=== PATIENT | female | born 1990 | race American Indian/Alaskan Native ===

== ENCOUNTER 2017-11-14 02:10 | Emergency (ER) | payer SELFPAY ==
[2017-11-14 02:45] LABS: Basophils % (Auto) 0.6 % (0.0-1.8); Eosinophils # (Auto) 0.1 K/mm3 (0.0-0.4); Eosinophils % (Auto) 1.2 % (0.0-4.3); Hematocrit 38.2 % (30.3-42.9); Hemoglobin 12.7 gm/dl (10.1-14.3); Lymphocytes # (Auto) 1.9 K/mm3 (1.2-5.4); Lymphocytes % (Auto) 30.2 % (13.4-35.0); Mean Corpuscular HGB Conc 33 % (30-34); Mean Corpuscular Hemoglobin 32 pg (28-32); Mean Corpuscular Volume 95 fl (79-97); Monocytes # (Auto) 0.6 K/mm3 (0.0-0.8); Monocytes % (Auto) 9.9 % (0.0-7.3); Platelet Count 239 K/mm3 (140-440); Red Blood Count 4.05 M/mm3 (3.65-5.03)
[2017-11-14 03:22] LABS: Bilirubin,Urine NEG (Negative); Blood,Urine NEG (Negative); Color,Urine Yellow (Yellow); Mucus,Urine FEW /HPF; Protein,Urine <15 mg/dL mg/dL (Negative); Urobilinogen,Urine < 2.0 mg/dL (<2.0); WBC,Urine < 1.0 /HPF (0.0-6.0)
--- NOTE | 2017-11-14 07:42 | Emergency Department Report ---
ED General Adult HPI - General Chief complaint: Back Pain/Injury Stated complaint: POSS HIGH BP NUMBNESS NAUSEA SINUS CONGESTION Time Seen by Provider: 11/14/17 07:21 Source: patient, family Mode of arrival: Ambulatory Limitations: No Limitations - History of Present Illness Initial comments: This is 27-year-old female who is here report that she is having numbness to her left arm and lip 2 years which is worse. She does not have any numbness at this time but reports that she has a history of high blood pressure and she was taking a water pill and it always better potassium low that she is worried about that. She is also complaining of possible high blood pressure and nausea from sinus drainage. She did report that she was having back pain at 10 out of 10 that was on and off to lower back on both sides that in the injury. Pain is achy but none now. Denies any urinary, burning and frequency urgency. Denies any fever or chills. Denies any abdominal pain. Denies any cough, shortness of breath or chest pain. Denies any headache, dizziness or blurred vision. No alleviating or exacerbating factors. No medication taken prior to coming to the emergency room. Onset/Timin -: year(s) Location: back Radiation: non-radiation Severity scale (0 -10): 10 Quality: aching Consistency: intermittent Worsens with: none Associated Symptoms: nausea/vomiting (nausea from postnasal drip), other ( numbness to left arm and lip. Nasal congestion and runny nose from sinus problems). denies: confusion, chest pain, cough, diaphoresis, fever/chills, headaches, loss of appetite, malaise, rash, seizure, shortness of breath, syncope, weakness Treatments Prior to Arrival: none - Related Data Previous Rx's Medication Instructions Recorded Last Taken Type Amoxicillin 500 mg PO Q8H 10 Days #30 capsule 11/14/17 Unknown Rx Cetirizine HCl [ZyrTEC] 10 mg PO QDAY 21 Days #21 11/14/17 Unknown Rx tab.rapdis Fluticasone [Flonase] 1 spray NS QDAY 14 Days #1 bottle 11/14/17 Unknown Rx Promethazine [Phenergan TAB] 25 mg PO Q6HR PRN #16 tab 11/14/17 Unknown Rx Allergies Allergy/AdvReac Type Severity Reaction Status Date / Time ondansetron Allergy Anaphylaxis Verified 11/14/17 02:23 [From Zofran (as hydrochloride)] ED Review of Systems ROS: Stated complaint: POSS HIGH BP NUMBNESS NAUSEA SINUS CONGESTION Other details as noted in HPI Constitutional: denies: chills, fever Eyes: denies: eye pain, eye discharge, vision change ENT: congestion. denies: ear pain, throat pain, dental pain Respiratory: denies: cough, shortness of breath, SOB with exertion, SOB at rest , stridor, wheezing Cardiovascular: denies: chest pain, palpitations, edema, syncope, paroxysmal nocturnal dyspnea Endocrine: no symptoms reported Gastrointestinal: nausea. denies: abdominal pain, vomiting, diarrhea, constipation, hematemesis, hematochezia Genitourinary: denies: urgency, dysuria, discharge Musculoskeletal: denies: back pain, joint swelling, arthralgia, myalgia Skin: denies: rash, lesions Neurological: numbness (left arm and lip that has resolved. This is been going on for 2 years and it comes and goes.). denies: headache, weakness, paresthesias, abnormal gait, vertigo Psychiatric: denies: anxiety, depression ED Past Medical Hx - Past Medical History Previous Medical History?: Yes Hx Hypertension: Yes - Surgical History Past Surgical History?: Yes - Family History Family history: hypertension - Social History Smoking Status: Current Every Day Smoker Substance Use Type: None - Medications Home Medications: Home Medications Medication Instructions Recorded Confirmed Last Taken Type Amoxicillin 500 mg PO Q8H 10 Days #30 capsule 11/14/17 Unknown Rx Cetirizine HCl [ZyrTEC] 10 mg PO QDAY 21 Days #21 11/14/17 Unknown Rx tab.rapdis Fluticasone [Flonase] 1 spray NS QDAY 14 Days #1 bottle 11/14/17 Unknown Rx Promethazine [Phenergan TAB] 25 mg PO Q6HR PRN #16 tab 11/14/17 Unknown Rx ED Physical Exam - General Limitations: No Limitations General appearance: alert, in no apparent distress - Head Head exam: Present: atraumatic, normocephalic, normal inspection - Eye Eye exam: Present: normal appearance, PERRL, EOMI. Absent: nystagmus Pupils: Present: normal accommodation - ENT ENT exam: Present: normal exam, normal orophraynx, mucous membranes moist, normal external ear exam, other (bilateral nasal mucosa erythema, congested with clear drainage. Bilateral maxillary sinus tenderness to palpate). Absent : TM's normal bilaterally (bilateral TM congested without erythema) - Neck Neck exam: Present: normal inspection, tenderness, full ROM. Absent: meningismus, lymphadenopathy, thyromegaly - Respiratory Respiratory exam: Present: normal lung sounds bilaterally. Absent: respiratory distress, chest wall tenderness - Cardiovascular Cardiovascular Exam: Present: normal rhythm, normal heart sounds. Absent: bradycardia, systolic murmur, diastolic murmur - GI/Abdominal GI/Abdominal exam: Present: soft, normal bowel sounds. Absent: distended, tenderness, guarding, rebound, rigid, organomegaly, mass, bruit, pulsatile mass , hernia - Extremities Exam Extremities exam: Present: normal inspection, full ROM, normal capillary refill. Absent: tenderness, pedal edema - Back Exam Back exam: Present: normal inspection, full ROM, other (ambulates without any difficulties). Absent: tenderness, CVA tenderness (R), CVA tenderness (L), muscle spasm, paraspinal tenderness, vertebral tenderness, rash noted - Neurological Exam Neurological exam: Present: alert, oriented X3, normal gait, reflexes normal. Absent: motor sensory deficit - Psychiatric Psychiatric exam: Present: normal affect, normal mood - Skin Skin exam: Present: warm, dry, intact, normal color. Absent: rash ED Course Vital Signs 11/14/17 11/14/17 02:12 04:11 Temperature 98.0 F Pulse Rate 54 L 63 Respiratory 18 18 Rate Blood Pressure 144/93 Blood Pressure 138/86 [Right] O2 Sat by Pulse 99 99 Oximetry - Reevaluation(s) Reevaluation #1: 11/14/17 08:40 She received potassium 40 mEq by mouth 1 dose in the emergency room. Potassium is 3.5. She is able to tolerate oral liquids. She did have any numbness or tingling or back pain at present. Patient says she feels better. Her vital signs remained stable throughout ED course. ED Medical Decision Making - Lab Data Result diagrams: 11/14/17 02:35 Lab Results 11/14/17 11/14/17 11/14/17 Range/Units 02:35 02:35 03:06 WBC 6.4 (4.5-11.0) K/mm3 RBC 4.05 (3.65-5.03) M/mm3 Hgb 12.7 (10.1-14.3) gm/dl Hct 38.2 (30.3-42.9) % MCV 95 (79-97) fl MCH 32 (28-32) pg MCHC 33 (30-34) % RDW 14.0 (13.2-15.2) % Plt Count 239 (140-440) K/mm3 Lymph % (Auto) 30.2 (13.4-35.0) % [place] % (Auto) 9.9 H (0.0-7.3) % Eos % (Auto) 1.2 (0.0-4.3) % Baso % (Auto) 0.6 (0.0-1.8) % Lymph # 1.9 (1.2-5.4) K/mm3 [place] # 0.6 (0.0-0.8) K/mm3 Eos # 0.1 (0.0-0.4) K/mm3 Baso # 0.0 (0.0-0.1) K/mm3 Seg Neutrophils % 58.1 (40.0-70.0) % Seg Neutrophils # 3.7 (1.8-7.7) K/mm3 Sodium (137-145) mmol/L Potassium (3.6-5.0) mmol/L Chloride (98-107) mmol/L Carbon Dioxide (22-30) mmol/L Anion Gap mmol/L BUN (7-17) mg/dL Creatinine (0.7-1.2) mg/dL Estimated GFR ml/min BUN/Creatinine Ratio % Glucose (65-100) mg/dL Calcium (8.4-10.2) mg/dL HCG, Qual Negative (Negative) Urine Color Yellow (Yellow) Urine Turbidity Clear (Clear) Urine pH 6.0 (5.0-7.0) Ur Specific [place] 1.009 (1.003-1.030) Urine Protein <15 mg/dl (Negative) mg/dL Urine Glucose (UA) Neg (Negative) mg/dL Urine Ketones Neg (Negative) mg/dL Urine Blood Neg (Negative) Urine Nitrite Neg (Negative) Urine Bilirubin Neg (Negative) Urine Urobilinogen < 2.0 (<2.0) mg/dL Ur Leukocyte Esterase Neg (Negative) Urine WBC (Auto) < 1.0 (0.0-6.0) /HPF Urine RBC (Auto) 1.0 (0.0-6.0) /HPF U Epithel Cells (Auto) < 1.0 (0-13.0) /HPF Urine Mucus Few /HPF 11/14/17 Range/Units 07:33 WBC (4.5-11.0) K/mm3 RBC (3.65-5.03) M/mm3 Hgb (10.1-14.3) gm/dl Hct (30.3-42.9) % MCV (79-97) fl MCH (28-32) pg MCHC (30-34) % RDW (13.2-15.2) % Plt Count (140-440) K/mm3 Lymph % (Auto) (13.4-35.0) % [place] % (Auto) (0.0-7.3) % Eos % (Auto) (0.0-4.3) % Baso % (Auto) (0.0-1.8) % Lymph # (1.2-5.4) K/mm3 [place] # (0.0-0.8) K/mm3 Eos # (0.0-0.4) K/mm3 Baso # (0.0-0.1) K/mm3 Seg Neutrophils % (40.0-70.0) % Seg Neutrophils # (1.8-7.7) K/mm3 Sodium 136 L (137-145) mmol/L Potassium 3.5 L (3.6-5.0) mmol/L Chloride 97.8 L (98-107) mmol/L Carbon Dioxide 25 (22-30) mmol/L Anion Gap 17 mmol/L BUN 7 (7-17) mg/dL Creatinine 0.7 (0.7-1.2) mg/dL Estimated GFR > 60 ml/min BUN/Creatinine Ratio 10 % Glucose 90 (65-100) mg/dL Calcium 9.2 (8.4-10.2) mg/dL HCG, Qual (Negative) Urine Color (Yellow) Urine Turbidity (Clear) Urine pH (5.0-7.0) Ur Specific [place] (1.003-1.030) Urine Protein (Negative) mg/dL Urine Glucose (UA) (Negative) mg/dL Urine Ketones (Negative) mg/dL Urine Blood (Negative) Urine Nitrite (Negative) Urine Bilirubin (Negative) Urine Urobilinogen (<2.0) mg/dL Ur Leukocyte Esterase (Negative) Urine WBC (Auto) (0.0-6.0) /HPF Urine RBC (Auto) (0.0-6.0) /HPF U Epithel Cells (Auto) (0-13.0) /HPF Urine Mucus /HPF - EKG Data -: EKG Interpreted by Me (attending physician) Rate: bradycardia (52 bpm. Her heart rate at present is at 62 bpm) - EKG Data When compared to previous EKG there are: no significant change Interpretation: no acute changes - Medical Decision Making This is a 19-year-old female who reported to the hospital report that she is having high blood pressure, numbness, nausea and sinus congestion this pain ongoing. She says she has been having problem with blood pressure and numbness to her lips and left arm for over 2 years because of low potassium. She does not have a primary care physician. She says she is not having any numbness at the moment but reports nausea from chronic sinus slightest and postnasal drainage and she possibly is saying that she has high blood pressure. She denies any cough, fever or chills. Denies any vomiting. Denies any headache. She says she stopped taking water pill because it made her potassium level and she has been intermittent. Patient was examined by myself and physical exam is normal except she has metastases or sinus tenderness, bilateral TM congested, bilateral nasal mucosa congested, erythema with clear drainage.. She is neurologically intact and back exam is normal. EKG sinus bradycardia at 52 and repeat heart rate is at 62 bpm. CBC and BMP normal except she has potassium of 3.5 which is mildly decreased and she was repleted with 40 mEq of potassium by mouth prior to discharge. Her urinalysis is normal and test is negative. I discussed the patient that she needs to find a primary care physician and I will refer her to [facility] and [facility] for follow-up in 2-3 days. I also discussed that she needs to keep a log of her blood pressure and to bring to her primary care physician for evaluation. I discussed the patient that her potassium which is slightly low but she will need to have primary care physician evaluated her says she has not been taking water pill for a while to see why her potassium run those. I discussed the patient with diagnosis treatment plan and she voiced understanding. I also discussed with her that her episodic numbness that she has been having needs to be investigated by a neurologist or refer her to a neurologist. A/P Hypokalemia-patient given 40 mEq of potassium and I referred her to primary care physician for evaluation. Acute sinusitis-patient will be sent, Zyrtec, Flonase and antibiotic. Episodic numbness to left arm and lip-none since emergency room and this has been going on for 2 years. I will refer her to a neurologist for further follow -up. 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 +5 strength in all extremities. Vision educated on foods that are high in potassium. Educated on labs, diagnosis and diagnostic tests. She voiced understanding Pt discharged home in stable condition with prescription for Flonase, Zyrtec and Flonase. Vital signs are stable she is afebrile and she says she feels a lot better. Critical care attestation.: If time is entered above; I have spent that time in minutes in the direct care of this critically ill patient, excluding procedure time. ED Disposition Clinical Impression: Hypokalemia, Nausea alone Sinusitis Qualifiers: Sinusitis location: maxillary Chronicity: acute Recurrence: recurrent Qualified Code(s): J01.01 - Acute recurrent maxillary sinusitis Disposition: TO HOME OR SELFCARE Is pt being admited?: No Does the pt Need Aspirin: No Condition: Stable Instructions: Paresthesia (ED), Hypokalemia (ED), Sinusitis (ED), DASH Eating Plan (ED), Acute Nausea and Vomiting (ED) Additional Instructions: Please follow up with primary care doctor as instructed. See multiple referral. Please call tomorrow to schedule appointment and in the meanwhile keep a log of your blood pressure and takes primary care physician with you Discharge instruction on multiple diagnoses. Use saline nasal spray to flush nasal mucosa out Take Medication as prescribed Do not take Phenergan if you driving or operating heavy machinery as this medication causes drowsiness If your symptoms worsens, please go to the nearest emergency room otherwise follow-up with primary care as recommended Will also need to see a neurologist for numbness to the arm and lips had been ongoing Referrals: YEIMY CARMEN MD [Primary Care Provider] - 2-3 Days [facility] [Outside] - 2-3 Days [facility] [place] [Outside] - 2-3 Days ROSIO OWENS MD [Staff Physician] - 3-5 Days Forms: Work/School Release Form(ED)
[2017-11-14 08:26] LABS: BUN/Creatinine Ratio 10; Blood Urea Nitrogen 7 mg/dL (7-17); Calcium 9.2 mg/dL (8.4-10.2); Hemolysis Index 0
[2017-11-14] MEDS ORDERED: K-DUR PO ONE (08:30)
[2017-11-14 09:09] VITALS: BP 138/85
== END 2017-11-14 09:07 | disposition home or self-care (01) ==
LOC: ED 02:10
DX: E87.6 Hypokalemia (principal); J01.01 Acute recurrent maxillary sinusitis; I10 Essential (primary) hypertension; F17.200 Nicotine dependence, unspecified, uncomplicated; Z88.8 Allergy status to other drugs, medicaments and biological substances
CPT/HCPCS: 36415; 80048; 81001; 84703; 85025; 93005; 93010; 99283